=== PATIENT | female | born 1985 | race Two or more races ===

== ENCOUNTER 2019-05-25 10:23 | Emergency (ER) | payer SELFPAY ==
[~2019-05-25] VITALS: Ht 162.6 cm; Wt 86.3 kg
[2019-05-25 11:05] LABS: BASO % 1 % (0-3); EOS # 0.2 x10^3/uL (0.0-0.7); EOS % 4 % (0-3); HEMATOCRIT 39.8 % (36.0-47.0); HEMOGLOBIN 13.3 g/dL (12.0-15.5); LYMPH # 1.9 x10^3/uL (1.0-4.8); LYMPH % 30 % (24-48); MEAN CORPUSCULAR HEMOGLOBIN 29 pg (25-35); MEAN CORPUSCULAR HGB CONC 34 g/dL (31-37); MEAN CORPUSCULAR VOLUME 88 fL (79-100); MONO # 0.5 x10^3/uL (0.0-1.1); MONO % 8 % (0-9); NEUT # 3.6 x10^3/uL (1.8-7.7); NEUT % 58 % (31-73); PLATELET COUNT 266 x10^3/uL (140-400); RED BLOOD COUNT 4.55 x10^6/uL (3.50-5.40); RED CELL DISTRIBUTION WIDTH 13.7 % (11.5-14.5); WHITE BLOOD COUNT 6.2 x10^3/uL (4.0-11.0)
[2019-05-25 11:21] LABS: CALCIUM 8.6 mg/dL (8.5-10.1); CREATININE 0.7 mg/dL (0.6-1.0); POTASSIUM 3.3 mmol/L (3.5-5.1)
--- NOTE | 2019-05-25 11:21 | PHYS DOC ---
Past Medical History Past Medical History: No Pertinent History Past Surgical History: No Surgical History Smoking Status: Never Smoker Alcohol Use: None Adult General Chief Complaint Chief Complaint: ABDOMINAL PAIN [facility] HPI Patient is a 33 year old Persian-speaking female without history of medical problem who presents with complaint of lower abdominal pain. History was taking with translating line. Patient complaining of intermittent episodes of sharp lower abdominal pain without radiation for the last 5 days that usually happen while she was at work and getting better than she is resting at home. Patient rated her pain 5-10 over 10 and complaining of nausea and few episodes of vomiting in the morning for the last couple days. Patient denies urinary symptoms, vaginal bleeding or discharge, diarrhea or constipation, history of the same problem. Patient is G2, P2 with LMP of April 22 and states she had a home negative test about 2 weeks ago. Patient has IUD. Patient states she did not take any pain medication because of the chance of . Patient does not want to have pain medication and mainly wants to know what is wrong with her. Review of Systems Review of Systems Constitutional: Denies fever or chills [] Eyes: Denies change in visual acuity, redness, or eye pain [] HENT: Denies nasal congestion or sore throat [] Respiratory: Denies cough or shortness of breath [] Cardiovascular: No additional information not addressed in HPI [] GI: Reports abdominal pain, nausea, vomiting, denies bloody stools or diarrhea [] : Denies dysuria or hematuria [] Musculoskeletal: Denies back pain or joint pain [] Integument: Denies rash or skin lesions [] Neurologic: Denies headache, focal weakness or sensory changes [] Endocrine: Denies polyuria or polydipsia [] All other systems were reviewed and found to be within normal limits, except as documented in this note. Current Medications Current Medications Current Medications Medications (Trade) Dose Ordered Sig/Ngoc Start Time Stop Time Status Last Admin Dose Admin Potassium Chloride (Klor-Con) 40 meq 1X ONCE 05/25/19 12:15 05/25/19 12:16 DC 05/25/19 12:17 40 MEQ Allergies Allergies Allergies Coded Allergies Type Severity Reaction Last Updated Verified No Known Drug Allergies 05/25/19 No Physical Exam Physical Exam Constitutional: Well developed, well nourished, mild distress, non-toxic appearance. [] HENT: Normocephalic, atraumatic. Eyes: PERRLA, EOMI, conjunctiva normal, no discharge. [] Neck: Normal range of motion, no tenderness, supple, no stridor. [] Cardiovascular:Heart rate regular rhythm, no murmur [] Lungs & Thorax: Bilateral breath sounds clear to auscultation [] Abdomen: Bowel sounds normal, soft, suprapubic guarding no tenderness, no masses, no pulsatile masses. [] Skin: Warm, dry, no erythema, no rash. [] Back: No tenderness, no CVA tenderness. [] Extremities: No tenderness, no cyanosis, no clubbing, ROM intact, no edema. [] Neurologic: Alert and oriented X 3, no focal deficits noted. [] Psychologic: Affect anxious l, judgement normal, mood normal. [] Current Patient Data Vital Signs Vital Signs Date Time Temp Pulse Resp B/P (MAP) Pulse Ox O2 Delivery O2 Flow Rate FiO2 05/25/19 12:16 102 111/63 (79) 100 Room Air 05/25/19 10:33 99.7 17 99.7 Lab Values Laboratory Tests Test 05/25/19 10:37 05/25/19 10:46 05/25/19 10:58 Urine Collection Type Unknown Urine Color Yellow Urine Clarity Clear Urine pH 6.0 (<5.0-8.0) Urine Specific [place] 1.025 (1.000-1.030) Urine Protein Negative mg/dL (NEG-TRACE) Urine Glucose (UA) Negative mg/dL (NEG) Urine Ketones (Stick) Negative mg/dL (NEG) Urine Blood Negative (NEG) Urine Nitrite Negative (NEG) Urine Bilirubin Negative (NEG) Urine Urobilinogen Dipstick 0.2 mg/dL (0.2 mg/dL) Urine Leukocyte Esterase Moderate (NEG) Urine RBC Occ /HPF (0-2) Urine WBC 5-10 /HPF (0-4) Urine Squamous Epithelial Cells Many /LPF Urine Bacteria Many /HPF (0-FEW) Urine Mucus Marked /LPF White Blood Count 6.2 x10^3/uL (4.0-11.0) Red Blood Count 4.55 x10^6/uL (3.50-5.40) Hemoglobin 13.3 g/dL (12.0-15.5) Hematocrit 39.8 % (36.0-47.0) Mean Corpuscular Volume 88 fL (79-100) Mean Corpuscular Hemoglobin 29 pg (25-35) Mean Corpuscular Hemoglobin Concent 34 g/dL (31-37) Red Cell Distribution Width 13.7 % (11.5-14.5) Platelet Count 266 x10^3/uL (140-400) Neutrophils (%) (Auto) 58 % (31-73) Lymphocytes (%) (Auto) 30 % (24-48) Monocytes (%) (Auto) 8 % (0-9) Eosinophils (%) (Auto) 4 % (0-3) H Basophils (%) (Auto) 1 % (0-3) Neutrophils # (Auto) 3.6 x10^3/uL (1.8-7.7) Lymphocytes # (Auto) 1.9 x10^3/uL (1.0-4.8) Monocytes # (Auto) 0.5 x10^3/uL (0.0-1.1) Eosinophils # (Auto) 0.2 x10^3/uL (0.0-0.7) Basophils # (Auto) 0.0 x10^3/uL (0.0-0.2) Sodium Level 142 mmol/L (136-145) Potassium Level 3.3 mmol/L (3.5-5.1) L Chloride Level 106 mmol/L (98-107) Carbon Dioxide Level 29 mmol/L (21-32) Anion Gap 7 (6-14) Blood Urea Nitrogen 13 mg/dL (7-20) Creatinine 0.7 mg/dL (0.6-1.0) Estimated GFR (Cockcroft-Gault) 97.0 BUN/Creatinine Ratio 19 (6-20) Glucose Level 75 mg/dL (70-99) Calcium Level 8.6 mg/dL (8.5-10.1) Total Bilirubin 0.4 mg/dL (0.2-1.0) Aspartate Amino Transferase (AST) 17 U/L (15-37) Alanine Aminotransferase (ALT) 20 U/L (14-59) Alkaline Phosphatase 82 U/L (46-116) Total Protein 7.1 g/dL (6.4-8.2) Albumin 3.7 g/dL (3.4-5.0) Albumin/Globulin Ratio 1.1 (1.0-1.7) POC Urine HCG, Qualitative Hcg negative (Negative) Laboratory Tests 05/25/19 10:46 Laboratory Tests 05/25/19 10:46 EKG EKG [] Radiology/Procedures Radiology/Procedures [] Course & Med Decision Making Course & Med Decision Making Pertinent Labs and Imaging studies reviewed. (See chart for details) discharge: I've spoken with the patient and/or caregivers. I've explained the patient's condition, diagnosis and treatment plan based on information available to me at this time. I've answered the patient's and/or caregivers questions and addressed any concerns. The patient and/or caregivers have a good understanding the patient's diagnosis, condition and treatment plan as can be expected at this point. Vital signs have been stabilized. The patient's condition is stable for discharge from the emergency department. The patient will pursue further outpatient evaluation with her primary care provider or other designated consulting physician as outlined in the discharge instructions. Patient and/or caregivers are agreeable to this plan of care and follow-up instructions have been explained in detail. The patient and/or caregivers have received these instructions in written format and expressed understanding of these discharge instructions. The patient and her caregivers are aware that if any significant change in condition or worsening of symptoms should prompt him to immediately return to this of the closest emergency department. If an emergent department is not readily available I would encourage him to call 911. [place] Disclaimer Dragon Disclaimer This electronic medical record was generated, in whole or in part, using a voice recognition dictation system. Departure Departure Impression: Primary Impression: UTI (urinary tract infection) Additional Impressions: Hypokalemia Abdominal pain Urine test negative Disposition: HOME, SELF-CARE (At 1227) Condition: STABLE Referrals: NO PCP (PCP) Patient Instructions: Abdominal Pain, Hypokalemia, Urinary Tract Infection Additional Instructions: Drink plenty of liquids Follow-up with your primary care physician in 3-5 days Return to ER if not getting better Thank you for visiting [facility]. We appreciate you trusting us with your care. If any additional problems come up don't hesitate to return to visit us. Please follow up with your primary care provider so they can plan additional care if needed and know about the problem that you had. If symptoms worsen come back to the Emergency Department. Any concerning symptoms that start such as chest pain, shortness of air, weakness or numbness on one side of the body, running high fevers or any other concerning symptoms return to the ER. Scripts Ciprofloxacin Hcl (CIPRO) 250 Mg Tablet 1 TAB PO BID for infection, #6 TAB Prov: CANDIS LAGOS MD 05/25/19 Naproxen (NAPROSYN) 500 Mg Tablet 1 TAB PO BID for pain, #14 TAB Prov: CANDIS LAGOS MD 05/25/19 Problem Qualifiers Primary Impression: UTI (urinary tract infection) Urinary tract infection type: acute cystitis Hematuria presence: without hematuria Qualified Codes: N30.00 - Acute cystitis without hematuria Additional Impressions: Abdominal pain Abdominal location: lower abdomen, unspecified Qualified Codes: R10.30 - Lower abdominal pain, unspecified CANDIS LAGOS MD May 25, 2019 11:21
[2019-05-25 11:27] LABS: ALBUMIN 3.7 g/dL (3.4-5.0); ALBUMIN/GLOBULIN RATIO 1.1 (1.0-1.7); TOTAL BILIRUBIN 0.4 mg/dL (0.2-1.0); TOTAL PROTEIN 7.1 g/dL (6.4-8.2)
[2019-05-25 11:47] LABS: BILIRUBIN,URINE NEGATIVE (NEG); CLARITY,URINE CLEAR; COLOR,URINE YELLOW; NITRITE,URINE NEGATIVE (NEG); PROTEIN,URINE NEGATIVE (NEG-TRACE); UROBILINOGEN,URINE 0.2 mg/dL (0.2 mg/dL)
[2019-05-25 12:04] LABS: RBC,URINE OCC /HPF (0-2)
[2019-05-25 12:05] LABS: BACTERIA,URINE MANY /HPF (0-FEW); SQUAMOUS EPITHELIAL CELL,UR MANY /LPF
[2019-05-25 12:16] VITALS: BP 111/63
[2019-05-25] MEDS: POTASSIUM CHLORIDE 20 MEQ TABLET.ER. PO ONE (12:17)
[2019-05-25] MEDS ORDERED: NAPR-683 PO (12:29)
[2019-05-25] MEDS ORDERED: CIPR250T30 PO (12:29)
== END 2019-05-25 12:55 | disposition home or self-care (01) ==
LOC: ER 10:23
DX: N30.00 Acute cystitis without hematuria (principal); R10.30 Lower abdominal pain, unspecified; E87.6 Hypokalemia
CPT/HCPCS: 36415; 80053; 81001; 81025; 85025; 87086; 99283

== ENCOUNTER 2020-04-30 10:08 | Emergency (ER) | payer SELFPAY ==
[~2020-04-30] VITALS: Ht 167.6 cm; Wt 85.0 kg
[~2020-04-30 10:08] MED LIST: CIPR250T30 PO; NAPR-683 PO
--- NOTE | 2020-04-30 11:20 | RAD ---
Chest AP portable 04/30/2020. Reason for exam: Shortness of air. No infiltrate or effusion is seen. Heart size and pulmonary vascularity appear normal. IMPRESSION: No acute abnormality. Electronically signed by: Doroteo Munguia Jr., MD (04/30/2020 11:18 AM) [facility]
[2020-04-30 11:26] LABS: BILIRUBIN,URINE NEGATIVE (NEG); CLARITY,URINE CLEAR; COLOR,URINE YELLOW; NITRITE,URINE NEGATIVE (NEG); PROTEIN,URINE NEGATIVE (NEG-TRACE); UROBILINOGEN,URINE 0.2 mg/dL (0.2 mg/dL)
[2020-04-30 11:42] LABS: BACTERIA,URINE FEW /HPF (0-FEW); RBC,URINE 0 /HPF (0-2)
[2020-04-30 11:43] LABS: AMORPHOUS SEDIMENT,UR PRESENT /HPF
--- NOTE | 2020-04-30 12:25 | RAD ---
Limited obstetrical ultrasound 04/30/2020. Reason for exam: Shortness of breath. The patient is 3 months . Evaluate viability. A living intrauterine fetus is demonstrated, with heart rate of 145 bpm. No anomaly is detected, alth ough evaluation is limited by the early stage of . Amniotic fluid volume appears appropriate . The placenta is seen posteriorly and appears to cross the internal os. The following age estimates were obtained: BPD: 16 weeks 5 days HC: 16 weeks 2 days AC: 16 weeks 3 days FL: 16 weeks 3 days. Composite ultrasound estimated is 16 weeks 3 days, giving RENNY of 10/12/2020. IMPRESSION: There is a normal-appearing living intrauterine fetus. There is currently placenta previa. This will commonly resolve later in , but a follow-up [facility] would be useful to confirm this. Electronically signed by: Doroteo Munguia Jr., MD (04/30/2020 12:23 PM) [facility]
[2020-04-30 12:49] LABS: BASO % 1 % (0-3); EOS # 0.2 x10^3/uL (0.0-0.7); EOS % 2 % (0-3); HEMATOCRIT 36.2 % (36.0-47.0); HEMOGLOBIN 12.4 g/dL (12.0-15.5); LYMPH # 1.4 x10^3/uL (1.0-4.8); LYMPH % 20 % (24-48); MEAN CORPUSCULAR HEMOGLOBIN 31 pg (25-35); MEAN CORPUSCULAR HGB CONC 34 g/dL (31-37); MEAN CORPUSCULAR VOLUME 90 fL (79-100); MONO # 0.5 x10^3/uL (0.0-1.1); MONO % 7 % (0-9); NEUT % 70 % (31-73); PLATELET COUNT 225 x10^3/uL (140-400); RED BLOOD COUNT 4.03 x10^6/uL (3.50-5.40); RED CELL DISTRIBUTION WIDTH 13.7 % (11.5-14.5); WHITE BLOOD COUNT 7.1 x10^3/uL (4.0-11.0)
[2020-04-30 13:00] LABS: CALCIUM 8.3 mg/dL (8.5-10.1); CREATININE 0.5 mg/dL (0.6-1.0); GFR 142.1; POTASSIUM 4.1 mmol/L (3.5-5.1)
[2020-04-30 13:05] LABS: ALBUMIN 2.8 g/dL (3.4-5.0); ALBUMIN/GLOBULIN RATIO 0.9 (1.0-1.7); TOTAL BILIRUBIN 0.2 mg/dL (0.2-1.0); TOTAL PROTEIN 5.9 g/dL (6.4-8.2)
[2020-04-30 13:59] VITALS: BP 102/64
--- NOTE | 2020-04-30 14:10 | PHYS DOC ---
Past Medical History Past Medical History: No Pertinent History Past Surgical History: No Surgical History Smoking Status: Never Smoker Alcohol Use: None General Adult EDM: Chief Complaint: SHORTNESS OF BREATH HPI: HPI: 34 yo presents to the ED with complaints of dry cough and fatigue, stating this does not feel like her asthma. Reports she is 3 months and when asked if she has any abdominal pain, c/o "pressure" in her lower abdomen. History of placenta previa and prior . Pt with friend in ed, speaks indian and gave permission for her to translate. Review of Systems: Review of Systems: Constitutional: Denies fever or chills. [] Eyes: Denies change in visual acuity. [] HENT: Denies nasal congestion or sore throat. [] Respiratory: Denies increased work of breathing or hemoptysis Cardiovascular: Denies chest pain or edema. [] GI: Denies abdominal pain, nausea, vomiting, bloody stools or diarrhea. [] : Denies dysuria or vaginal bleeding Musculoskeletal: Denies back pain or joint pain. [] Integument: Denies rash. [] Neurologic: Denies headache, neck stiffness, focal weakness or sensory changes. [] Endocrine: Denies polyuria or polydipsia. [] Lymphatic: Denies swollen glands. [] Psychiatric: Denies depression or anxiety. [] Heart Score: Risk Factors: Risk Factors: DM, Current or recent (<one month) smoker, HTN, HLP, family history of CAD, obesity. Risk Scores: Score 0 - 3: 2.5% MACE over next 6 weeks - Discharge Home Score 4 - 6: 20.3% MACE over next 6 weeks - Admit for Clinical Observation Score 7 - 10: 72.7% MACE over next 6 weeks - Early Invasive Strategies Allergies: Allergies: Allergies Coded Allergies Type Severity Reaction Last Updated Verified No Known Drug Allergies 05/25/19 No Physical Exam: PE: Constitutional: Well developed, well nourished, no acute distress, non-toxic ap pearance. HENT: Normocephalic, atraumatic, Eyes: EOMI, conjunctiva normal, no discharge. Neck: Normal range of motion, supple, Cardiovascular: S1/2 present, regular rhythm Lungs & Thorax: Speaking in full sentences, bilateral equal chest rise, no tachypnea or increased work of breathing, lungs clear to auscultation bilaterally, no wheezing/rales/crackles, 99-100% on room air, Abdomen: soft, no tenderness, Skin: Warm, dry, no erythema, no rash. [] Back: No tenderness, no CVA tenderness. [] Extremities: No tenderness, no cyanosis, no lower extremity edema Neurologic: Alert and oriented X 3, normal motor function, normal sensory function, no focal deficits noted. [] Psychologic: Affect normal, judgement normal, mood normal. [] Current Patient Data: Labs: Laboratory Tests Test 04/30/20 10:10 04/30/20 11:21 04/30/20 12:20 Urine Collection Type Void Urine Color Yellow Urine Clarity Clear Urine pH 8.0 (<5.0-8.0) Urine Specific [place] 1.010 (1.000-1.030) Urine Protein Negative mg/dL (NEG-TRACE) Urine Glucose (UA) Negative mg/dL (NEG) Urine Ketones (Stick) Negative mg/dL (NEG) Urine Blood Negative (NEG) Urine Nitrite Negative (NEG) Urine Bilirubin Negative (NEG) Urine Urobilinogen Dipstick 0.2 mg/dL (0.2 mg/dL) Urine Leukocyte Esterase Trace (NEG) Urine RBC 0 /HPF (0-2) Urine WBC 1-4 /HPF (0-4) Urine Squamous Epithelial Cells Mod /LPF Urine Renal Epithelial Cells Few /LPF Urine Amorphous Sediment Present /HPF Urine Bacteria Few /HPF (0-FEW) POC Urine HCG, Qualitative Hcg positive (Negative) White Blood Count 7.1 x10^3/uL (4.0-11.0) Red Blood Count 4.03 x10^6/uL (3.50-5.40) Hemoglobin 12.4 g/dL (12.0-15.5) Hematocrit 36.2 % (36.0-47.0) Mean Corpuscular Volume 90 fL (79-100) Mean Corpuscular Hemoglobin 31 pg (25-35) Mean Corpuscular Hemoglobin Concent 34 g/dL (31-37) Red Cell Distribution Width 13.7 % (11.5-14.5) Platelet Count 225 x10^3/uL (140-400) Neutrophils (%) (Auto) 70 % (31-73) Lymphocytes (%) (Auto) 20 % (24-48) L Monocytes (%) (Auto) 7 % (0-9) Eosinophils (%) (Auto) 2 % (0-3) Basophils (%) (Auto) 1 % (0-3) Neutrophils # (Auto) 5.0 x10^3/uL (1.8-7.7) Lymphocytes # (Auto) 1.4 x10^3/uL (1.0-4.8) Monocytes # (Auto) 0.5 x10^3/uL (0.0-1.1) Eosinophils # (Auto) 0.2 x10^3/uL (0.0-0.7) Basophils # (Auto) 0.0 x10^3/uL (0.0-0.2) D-Dimer (Ami) 0.77 ug/mlFEU (0.00-0.50) H Sodium Level 136 mmol/L (136-145) Potassium Level 4.1 mmol/L (3.5-5.1) Chloride Level 104 mmol/L (98-107) Carbon Dioxide Level 24 mmol/L (21-32) Anion Gap 8 (6-14) Blood Urea Nitrogen 7 mg/dL (7-20) Creatinine 0.5 mg/dL (0.6-1.0) L Estimated GFR (Cockcroft-Gault) 142.1 BUN/Creatinine Ratio 14 (6-20) Glucose Level 79 mg/dL (70-99) Calcium Level 8.3 mg/dL (8.5-10.1) L Total Bilirubin 0.2 mg/dL (0.2-1.0) Aspartate Amino Transferase (AST) 16 U/L (15-37) Alanine Aminotransferase (ALT) 22 U/L (14-59) Alkaline Phosphatase 57 U/L (46-116) Troponin I Quantitative < 0.017 ng/mL (0.000-0.055) Total Protein 5.9 g/dL (6.4-8.2) L Albumin 2.8 g/dL (3.4-5.0) L Albumin/Globulin Ratio 0.9 (1.0-1.7) L Laboratory Tests 04/30/20 12:20 Laboratory Tests 04/30/20 12:20 EKG: EKG: Sinus rhythm 87 bpm, no axis deviation, no T wave inversions, no ST elevations or ST depressions, normal intervals Radiology/Procedures: Radiology/Procedures: []IMAGING REPORT Signed PATIENT: SEBASTIÁN BLACKBURNUNT: [id number] : 1985 LOCATION: ER AGE: 34 SEX: F EXAM STATUS: REG ER ORD. PHYSICIAN: BAIRON LICONA DO REASON: 3 mns prego PROCEDURE: OB LIMITED Limited obstetrical ultrasound 04/30/2020. Reason for exam: Shortness of breath. The patient is 3 months . Evaluate viability. A living intrauterine fetus is demonstrated, with heart rate of 145 bpm. No anomaly is detected, although evaluation is limited by the early stage of . Amniotic fluid volume appears appropriate. The placenta is seen posteriorly and appears to cross the internal os. The following age estimates were obtained: BPD: 16 weeks 5 days HC: 16 weeks 2 days AC: 16 weeks 3 days FL: 16 weeks 3 days. Composite ultrasound estimated is 16 weeks 3 days, giving RENNY of 10/12/2020. IMPRESSION: There is a normal-appearing living intrauterine fetus. There is currently placenta previa. This will commonly resolve later in , but a follow-up study would be useful to confirm this. Electronically signed by: Gagan Munguia Jr., MD (04/30/2020 12:23 PM) [facility] DICTATED and SIGNED BY: GAGAN MUNGUIA Jr, MD DATE: 04/30/20 [id number] IMAGING REPORT Signed PATIENT: SEBASTIÁN BLACKBURNUNT: [id number] : 1985 LOCATION: ER AGE: 34 SEX: F EXAM STATUS: REG ER ORD. PHYSICIAN: BAIRON LICONA DO REASON: soa PROCEDURE: PORTABLE CHEST 1V Chest AP portable 04/30/2020. Reason for exam: Shortness of air. No infiltrate or effusion is seen. Heart size and pulmonary vascularity appear normal. IMPRESSION: No acute abnormality. Electronically signed by: Gagan Munguia Jr., MD (04/30/2020 11:18 AM) [facility] DICTATED and SIGNED BY: GAGAN MUNGUIA Jr, MD DATE: 04/30/20 [id number] 0 IMAGING REPORT Signed PATIENT: SEBASTIÁN BLACKBURNUNT: [id number] : 1985 LOCATION: ER AGE: 34 SEX: F EXAM STATUS: REG ER ORD. PHYSICIAN: BAIRON LICONA DO REASON: SOB, R/O PE PROCEDURE: CT ANGIOGRAPHY CHEST CTA chest with and without contrast 04/30/2020. Reason for exam: Shortness of breath. Possible pulmonary embolism. Thin section CT images were made through the chest using an infusion of 100 mL Omnipaque 350. MIP reconstructions were performed. Exposure: One or more of the following individualized dose reduction techniques were utilized for this examination: 1. Automated exposure control 2. Adjustment of the mA and/or kV according to patient size 3. Use of iterative reconstruction technique. FINDINGS: No significant abnormality is seen in the lungs. The central airways appear normal. No enlarged lymph nodes are seen. Evaluation of the pulmonary arterial tree shows relatively poor opacification of the vessels. No large or central embolus is seen. Smaller peripheral emboli may be missed. Images through the upper abdomen show no apparent abnormality. IMPRESSION: No pulmonary embolism is seen, although evaluation is limited by the degree of contrast opacification. Smaller emboli would be difficult to detect. No acute abnormality is seen in the lungs. Electronically signed by: Gagan Munguia Jr., MD (04/30/2020 3:45 PM) [facility] DICTATED and SIGNED BY: GAGAN MUNGUIA Jr, MD DATE: 04/30/20 [id number] 0 Signed PATIENT: SEBASTIÁN BLACKBURNUNT: [id number] : 1985 LOCATION: ER AGE: 34 SEX: F EXAM STATUS: REG ER ORD. PHYSICIAN: BAIRON LICONA DO REASON: soa, r/o dvt PROCEDURE: VENOUS LOWER EXT BILATERAL CTA chest with and without contrast 04/30/2020. Reason for exam: Shortness of breath. Possible pulmonary embolism. Thin section CT images were made through the chest using an infusion of 100 mL Omnipaque 350. MIP reconstructions were performed. Exposure: One or more of the following individualized dose reduction techniques were utilized for this examination: 1. Automated exposure control 2. Adjustment of the mA and/or kV according to patient size 3. Use of iterative reconstruction technique. FINDINGS: No significant abnormality is seen in the lungs. The central airways appear normal. No enlarged lymph nodes are seen. Evaluation of the pulmonary arterial tree shows relatively poor opacification of the vessels. No large or central embolus is seen. Smaller peripheral emboli may be missed. Images through the upper abdomen show no apparent abnormality. IMPRESSION: No pulmonary embolism is seen, although evaluation is limited by the degree of contrast opacification. Smaller emboli would be difficult to detect. No acute abnormality is seen in the lungs. Electronically signed by: Gagan Munguia Jr., MD (04/30/2020 3:45 PM) [facility] DICTATED and SIGNED BY: GAGAN MUNGUIA Jr, MD DATE: 04/30/20 [id number] 0 Course & Med Decision Making: Course & Med Decision Making Pertinent Labs and Imaging studies reviewed. (See chart for details) COVID-19 CRITERIA: The patient was evaluated during the global COVID-19 pandemic, and that diagnosis was suspected/considered upon their initial presentation. Their evaluation, treatment and testing was consistent with current guidelines for patients who present with complaints or symptoms that may be related to COVID-19. Concern for shortness of breath and fatigue, covid test pending. CTA with no thromboembolic disease although cannot exclude small emboli. No LE DVT. Labs wnl. US c/w second trimester with placenta previa. Urinalysis contaminated but given patient's symptoms we will treat with Macrobid. Patient is very well-appearing and in no distress. Symptoms could be related to Covid, viral process or normal symptoms of . Will discharge home with strict ED return precautions. Encouraged urgent outpatient follow-up with PMD and TOOL RENTAL TECHNICIAN. Life-threatening processes were considered but are low suspicion at this time, given history, physical exam and ED workup. Pt was educated on all prescription medications and adverse effects. All patient's questions were answered and pt was stable at time of discharge. Life/limb-threatening differential includes but is not limited to, ACS, dysrhythmia, pneumothorax or hemothorax, pulmonary embolus, pneumonia, broncho constriction, pulmonary edema, angioedema, epiglottitis, tracheitis, Eligio's angina, RPA/TARRING MACHINE OPERATOR, anaphylaxis, angioedema, cardiac tamponade or murmurs, pericarditis, myocarditis, poisoning or toxicity, sepsis or autoimmune/neurologic disease. I spoken with the patient and her caregivers. I explained the patient's condition, diagnoses and treatment plan based on the information available to me at this time. I have answered the patient and her caregiver's questions and addressed any concerns. The patient and her caregivers have a good understanding of patient's diagnosis, condition and treatment plan as can be expected at this point. Vital signs have been stable. Patient's condition is stable and appropriate for discharge from the emergency department. Patient will pursue further outpatient evaluation with primary care physician or other designated or consulting physician as outlined in the discharge instructions. The patient and/or caregivers are agreeable to this plan of care and follow-up instructions have been explained in detail. The patient and/or caregivers have received these instructions in written form and have expressed an understanding of the discharge instructions. The patient and/or caregivers are aware that any significant change of condition or worsening of symptoms should prompt immediate return to this or the closest emergency department or call to 911. [place] Disclaimer: TelePharm Disclaimer: This electronic medical record was generated, in whole or in part, using a voice recognition dictation system. Departure Departure Impression: Primary Impression: Person under investigation for COVID-19 Additional Impressions: Placenta previa UTI (urinary tract infection) Dyspnea Disposition: 01 DC HOME SELF CARE/HOMELESS Condition: STABLE Referrals: NO PCP (PCP) SEGUIMIENTO CON MEDICINA FAMILIAR: Medicina Familiar Direccin: [address] [place] [address] Telfono: Patient Instructions: - Placenta Previa, Shortness of Breath, Urinary Tract Infection Additional Instructions: Chucky un seguimiento con un obstetra / gineclogo en la siguiente oficina para recibir atencin obsttrica SEGUIMIENTO CON OB / REEFER ENGINEER: [facility] Obstetricia y Ginecologa Direccin: [address] [place] [address] Telfono: Regrese al servicio de urgencias de inmediato si presenta sangrado vaginal / dolor abdominal o de espalda scarlett o fiebre, knight nivel de oxgeno por debajo del 90% (compre israel oximetra de pulso en israel rishabh de suministros mdicos), dificultad para respirar, incluida la respiracin rpida o aumento del trabajo respiratorio (piel succin debajo de las costillas), dolor de pecho o sntomas similares a un accidente cerebrovascular (cada de la kasia, cambios en el habla, debilidad de brazos / piernas). Le de los santos hecho israel prueba de COVID-19. Es israel infeccin causada por un nuevo tipo. de coronavirus. En la mayora de los casos, COVID-19 causar sntomas leves o similares a los de un resfriado. Puede causar sntomas ms graves kirit problemas para respirar en algunos. No existe tratamiento para COVID-19. El cuerpo eliminar la infeccin con el tiempo. Autocuidado ayudar a aliviar las molestias. Pasos a seguir: Autocuidado Descanse segn sea necesario. Los hbitos saludables pueden ayudarlo a sentirse mejor. Los pasos incluyen: Elija alimentos saludables que incluyan frutas y verduras. Sophia agua aniket todo el da. Duerma lo suficiente cada noche. Si fuma, intente dejar de hacerlo. Puede facilitar la respiracin. Evite el alcohol. Mantenga a los dems sanos El virus se puede contagiar a otras personas. Se liberan gotitas cada vez que estornuda o tose. los las gotitas pueden entrar en la boca, la nariz o los ojos de las personas cercanas a usted y provocar israel infeccin. A reducir las posibilidades de transmitir COVID-19 a otras personas: Qudese en casa hasta que knight mdico le diga que es seguro irse. Si mimi positivo esto significar permanecer aislado hasta que se cumplan las dos condiciones siguientes: De [place] pasado al menos 7 burris desde el inicio de la enfermedad. No zabala tenido fiebre aniket al menos 72 horas sin el uso de medicamentos. Aniket veronica tiempo: - Evite las reas pblicas, los eventos o el transporte. No regrese al trabajo ni a la escuela hasta que El mdico zabala dicho que es seguro hacerlo. - Llame con anticipacin si necesita ir a un centro mdico. Hgales saber que puede tener COVID-19. Eso les ayudar a guiarle a dnde ir. Tambin pueden pedirle que use israel mascarilla cuando venga a la oficina. - Si llama a los servicios mdicos de emergencia, infrmeles que es posible que tenga COVID-19. Mientras est en casa: - Trate de evitar el contacto cercano con otras personas. Mantngase a unos 6 pies de distancia. - Si es posible, pase la mayor parte de knight tiempo en israel habitacin separada de las dems. - Use israel mascarilla si va a estar en contacto cercano con otras personas, kirit compartir israel habitacin o vehculo. - Pdale a alguien que limpie las superficies comunes de la casa. Utilice limpiadores domsticos todos los burris reas kirit picaportes, mostradores o lavabos. - Toser o estornudar en un pauelo. Deseche el pauelo inmediatamente despus de knight uso. Si un pauelo no est disponible, tosa o estornude en knight codo. - Lvese las carmen con frecuencia. Lvelos despus de estornudar o toser. Use agua y jabn y lvese aniket al menos 20 segundos. Se puede usar un limpiador de carmen a base de alcohol si no se usa agua y jabn. disponible. - No prepare comida para otros. Evite compartir artculos personales kirit tenedores, cucharas o cepillos de dientes. - Evite el contacto cercano con mascotas mientras est enfermo. No hay evidencia del virus. pasando a las mascotas. Veronica es un paso de seguridad hasta que se sepa ms sobre veronica virus. El aislamiento puede resultar frustrante. La interaccin social puede ayudar. Mantente en contacto con amigos y elly a travs de opciones de telfono y tecnologa. Todava puede interactuar con otras personas en knight hogar, solo mantenga israel distancia austin de aproximadamente 6 pies. Hacer un seguimiento: El consultorio de knight mdico se comunicar con usted para gaurav si hay algn cambio en knight claudia. Es posible que le pidan que lleve un registro de los sntomas para compartir con ellos. Tambin te lo harn saber cuando tengas alexis que volvers a estar en pblico. Problemas a tener en cuenta: Comunquese con knight mdico si knight recuperacin no va kirit esperaba. Obtenga atencin de emergencia si tiene problemas kirit: - Dificultad para respirar - Dolor o presin en el pecho sin parar - Cambios en la conciencia, confusin o problemas para despertarse. - Los labios o la kasia tienen un color azulado. - Empeoramiento de los sntomas Si anuel que tiene israel emergencia, llame a los servicios mdicos de emergencia de inmediato. Tomado de [facility] Nitrofurantoin Monohyd/M-Cryst (MACROBID 100 MG CAPSULE) 100 Mg Capsule 1 CAP PO BID for 7 Days, #14 CAP 0 Refills Prov: BAIRON LICONA DO 04/30/20 BAIRON LICONA DO Apr 30, 2020 14:10
[2020-04-30] MEDS ORDERED: IOHEXOL 350 MG/ML 100 ML VIAL. IV ONE (14:45)
[2020-04-30] MEDS ORDERED: CONTRAST GIVEN. MC PRN (15:00)
--- NOTE | 2020-04-30 15:47 | RAD ---
CTA chest with and without contrast 04/30/2020. Reason for exam: Shortness of breath. Possible pulmonary embolism. Thin section CT images were made through the chest using an infusion of 100 mL Omnipaque 350. MIP rec onstructions were performed. Exposure: One or more of the following individualized dose reduction wojciech hniques were utilized for this examination: 1. Automated exposure control 2. Adjustment of the mA a nd/or kV according to patient size 3. Use of iterative reconstruction technique. FINDINGS: No significant abnormality is seen in the lungs. The central airways appear normal. No enla rged lymph nodes are seen. Evaluation of the pulmonary arterial tree shows relatively poor opacification of the vessels. No larg e or central embolus is seen. Smaller peripheral emboli may be missed. Images through the upper abdomen show no apparent abnormality. IMPRESSION: No pulmonary embolism is seen, although evaluation is limited by the degree of contrast o pacification. Smaller emboli would be difficult to detect. No acute abnormality is seen in the lungs. Electronically signed by: Doroteo Munguia Jr., MD (04/30/2020 3:45 PM) [facility]
[2020-04-30] MEDS ORDERED: NITR100C62 PO (17:15)
--- NOTE | 2020-04-30 17:52 | EKG ---
[facility] [address] [place] [address] Test Date: 2020-04-30 Test Time: 16:37:09 Pat Name: YEISON BLACKBURN Department: Room: Gender: F Pecan Mallow Dipper: : 1985 Requested By: BAIRON LICONA Order Number: [id number] Reading MD: Measurements Intervals [place] Rate: 87 P: 6 ID: [id number] QRS: 25 QRSD: 88 T: 27 QT: 334 QTc: 407 Interpretive Statements SINUS RHYTHM NORMAL ECG RI6.01 No previous ECG available for comparison
--- NOTE | 2020-05-02 15:04 | NUR ---
IP: Attempted to contact pt concerning COVID results. No answer Voicemail box is full.
== END 2020-04-30 17:45 | disposition home or self-care (01) ==
LOC: ER 10:08
DX: O23.42 Unspecified infection of urinary tract in pregnancy, second trimester (principal); O44.02 Complete placenta previa NOS or without hemorrhage, second trimester; Z20.822 Contact with and (suspected) exposure to COVID-19; R06.00 Dyspnea, unspecified; R05 Cough; Z3A.16 16 weeks gestation of pregnancy
CPT/HCPCS: 36415; 71045; 71275; 76815; 80053; 81001; 81025; 84484; 85025; 85379; 87086; 93005; 93970; 99285; Q9967; U0003; C9803

== ENCOUNTER 2020-06-19 04:11 | Observation (INO) | payer SELFPAY ==
[~2020-06-19 04:11] MED LIST changes: +NITR100C62 PO
[2020-06-19] MEDS ORDERED: IV RINGERS,LACTATED 1000ML 1,000 ML IV PRN (04:30)
[2020-06-19 04:38] LABS: BILIRUBIN,URINE NEGATIVE (NEG); CLARITY,URINE CLEAR; COLOR,URINE YELLOW; NITRITE,URINE NEGATIVE (NEG); PROTEIN,URINE NEGATIVE (NEG-TRACE); UROBILINOGEN,URINE 0.2 mg/dL (0.2 mg/dL)
[2020-06-19 04:44] LABS: BACTERIA,URINE FEW /HPF (0-FEW); BARBITURATES NEG (NEG); BENZODIAZEPINES NEG (NEG); CANNABINOIDS NEG (NEG); COCAINE NEG (NEG); METHADONE NEG (NEG); OPIATES NEG (NEG); PHENCYCLIDINE NEG (NEG); RBC,URINE RARE /HPF (0-2)
[2020-06-19 04:46] LABS: AMPHETAMINE/METHAMPHETAMINE NEG (NEG)
== END 2020-06-19 05:24 | disposition home or self-care (01) ==
LOC: 3 SO LND 04:11
PROVIDERS: ADMIT Obstetrics & Gynecology; ATTEND Obstetrics & Gynecology
DX: O26.892 Other specified pregnancy related conditions, second trimester (principal); R07.89 Other chest pain; Z3A.22 22 weeks gestation of pregnancy; Z79.899 Other long term (current) drug therapy
CPT/HCPCS: 59025; 80307; 81001; 87086; G0378; G0379

== ENCOUNTER 2020-11-01 09:17 | Emergency (ER) | payer SELFPAY ==
[~2020-11-01] VITALS: Ht 165.1 cm; Wt 84.4 kg
[2020-11-01 09:30] VITALS: BP 118/78
--- NOTE | 2020-11-01 09:56 | PHYS DOC ---
Past Medical History Past Medical History: Asthma Past Surgical History: Smoking Status: Never Smoker Alcohol Use: None General Adult EDM: Chief Complaint: COUGH HPI: HPI: 35-year-old female with a history of asthma presents the emergency department complaining of cough with phlegm production for the last several days. She has a at home who is also sick with similar symptoms. She denies any shortness of breath. She has an inhaler at home that she has not used for her symptoms. The patient denies nausea, vomiting, fever, chills, chest pain, shortness of breath, abdominal pain, urinary symptoms, recent trauma, or any other complaints. Review of Systems: Review of Systems: Review of systems is otherwise negative except for what was mentioned in the HPI Heart Score: C/O Chest Pain: No Allergies: Allergies: Allergies Coded Allergies Type Severity Reaction Last Updated Verified No Known Drug Allergies 05/25/19 No Physical Exam: PE: Constitutional: No acute distress, non-toxic appearance. HENT: Atraumatic, bilateral external ears normal, nose normal. Eyes: PERRLA, EOMI, conjunctiva normal, no discharge. Neck: Normal range of motion, supple, no stridor. Cardiovascular: Heart rate regular rhythm. 2+ radial pulses Lungs & Thorax: No respiratory distress, symmetrical expansion. Bilateral breath sounds clear to auscultation Abdomen: Soft, no tenderness Skin: Warm, dry. Extremities: No tenderness, no cyanosis, ROM intact, no edema. Neurologic: Alert and oriented X 3, normal motor function, normal sensory function, no focal deficits noted. Non ataxic gait. GCS 15. Psychologic: Affect normal, judgment normal, mood normal. Current Patient Data: Labs: Laboratory Tests Test 11/01/20 10:05 SARS-CoV-2 Antigen (Rapid) Negative (NEGATIVE) Vital Signs: Vital Signs Date Time Temp Pulse Resp B/P (MAP) Pulse Ox O2 Delivery O2 Flow Rate FiO2 11/01/20 09:30 98.4 95 18 118/78 (77) 97 Room Air 98.4 Radiology/Procedures: Radiology/Procedures: AP chest. HISTORY: Cough AP view was taken of the chest. Lungs are free of infiltrates. Heart is normal in size. There is no effusion. There is a granuloma on the left. IMPRESSION: 1. No acute infiltrates. Electronically signed by: Seferino Grossman MD (11/01/2020 10:25 AM) Course & Med Decision Making: Course & Med Decision Making History was obtained via an reinsurance claims analyst. X-ray clear, no signs of asthma exacerbation today. Patient likely has a simple bronchitis URI, rapid Covid was negative, PCR test is pending. Departure Departure Impression: Primary Impression: Cough Disposition: HOME / SELF CARE / HOMELESS Condition: GOOD Referrals: NO PCP (PCP) Patient Instructions: Upper Respiratory Infection, Adult, Mewy-xw-Seaf Additional Instructions: You were seen in the emergency department for a upper respiratory tract infection. You should return to the ED if you develop worsening cough, shortness of breath, chest pain, or any other new or concerning symptoms. You can use an OTC sinus rinse to help with sinus congestion. Your cough may persist for a few weeks but your other symptoms should gradually improve. You should make sure to drink plenty of fluids at home. Your Covid test today was negative ZAIDA JIMENEZ DO Nov 01, 2020 09:56
--- NOTE | 2020-11-01 10:27 | RAD ---
AP chest. HISTORY: Cough AP view was taken of the chest. Lungs are free of infiltrates. Heart is normal in size. There is no e ffusion. There is a granuloma on the left. IMPRESSION: 1. No acute infiltrates. Electronically signed by: Seferino Grossman MD (11/01/2020 10:25 AM) [facility]
--- NOTE | 2020-11-02 11:48 | NUR ---
IP: Informed pt of negative covid test. pt verbalized understanding.
== END 2020-11-01 12:34 | disposition home or self-care (01) ==
LOC: ER 09:17
DX: R05 Cough (principal); Z20.822 Contact with and (suspected) exposure to COVID-19; J45.909 Unspecified asthma, uncomplicated
CPT/HCPCS: 71045; 87426; 96361; 96374; 99285; U0003; U0005

== ENCOUNTER 2020-11-11 10:10 | Emergency (ER) | payer SELFPAY ==
[~2020-11-11] VITALS: Ht 167.6 cm; Wt 85.0 kg
[2020-11-11 10:21] VITALS: BP 118/80
[2020-11-11] MEDS ORDERED: ACETAMINOPHEN 325 MG TABLET. PO ONE (11:00)
[2020-11-11] MEDS ORDERED: LIDOCAINE 1% Multi-Dose 20 ML VIAL. ID ONE (11:00)
[2020-11-11] MEDS ORDERED: AMOX1TAB61 PO (11:06)
--- NOTE | 2020-11-11 11:09 | PHYS DOC ---
Past Medical History Past Medical History: Asthma Additional Past Medical Histor: Seasonal allergies (GORDON BERRY) Past Surgical History: No Surgical History, (GORDON BERRY) Smoking Status: Never Smoker Alcohol Use: None (GORDON BERRY) General Adult EDM: Chief Complaint: ANIMAL BITE Problems: (1) Dog bite of ear (GORDON BERRY) HPI: HPI: Patient is a 35 year old female who presents with a dog bite to her right ear. Patient states that she was in bed with her 13-year-old daughter [facility], when the dog suddenly woke up and bit her ear. Patient rates her pain as 5 out of 10. She denies headache and any other trauma. Patient also has a 1-month-old baby and is currently breast-feeding. She states the dogs immunizations are up-to-date. Her tetanus has been updated within the last 5 years as she was recently . Patient has no other complaints at this time. (GORDON BERRY) Review of Systems: Review of Systems: Constitutional: Denies fever or chills. Eyes: Denies change in visual acuity. HENT: See HPI Respiratory: Denies cough or shortness of breath. Cardiovascular: Denies chest pain or edema. Musculoskeletal: Denies back pain or joint pain. Integument: See HPI Neurologic: Denies headache, focal weakness or sensory changes. (GORDON BERRY) Heart Score: C/O Chest Pain: No (GORDON BERRY) Allergies: Allergies: Allergies Coded Allergies Type Severity Reaction Last Updated Verified No Known Drug Allergies 05/25/19 No (GORDON BERRY) Physical Exam: PE: Constitutional: Well developed, well nourished, no acute distress, non-toxic appearance. HENT: Right external ear has 3 puncture wounds to the anterior auricle, 2 cm laceration to the postauricular fold. Left external ear atraumatic. Normocephalic, oropharynx moist, no oral exudates, nose normal. Eyes: PERRLA, EOMI, conjunctiva normal, no discharge. Cardiovascular:Heart rate regular rhythm, no murmur. Lungs & Thorax: Bilateral breath sounds clear to auscultation. Skin: Laceration as noted above. Otherwise warm, dry, no erythema, no rash. Neurologic: Alert and oriented X 3, normal motor function, normal sensory function, no focal deficits noted. (GORDON BERRY) Course & Med Decision Making: Course & Med Decision Making Pertinent Labs and Imaging studies reviewed. (See chart for details) (GORDON BERRY) Course & Med Decision Making Attending addendum: I evaluated this patient along with the PA prior to laceration closure. I was not able to evaluate the wound after repair. Tdap was up-to-date. We offered to complete police of the dog bite, but the patient declined to have this done as it is her own dog. Was treated with Augmentin for prophylaxis. Otherwise documentation as above. (NASIMA SHETH MD) Dragon Disclaimer: Dragon Disclaimer: This electronic medical record was generated, in whole or in part, using a voice recognition dictation system. (GORDON BERRY) Departure Departure Impression: Primary Impression: Dog bite of ear Qualified Codes: S01.351A - Open bite of right ear, initial encounter; W54.0XXA - Bitten by dog, initial encounter Disposition: HOME / SELF CARE / HOMELESS Condition: STABLE Referrals: NO PCP (PCP) Patient Instructions: Laceration Care, Adult, [id number] Additional Instructions: It is your choice to report the animal bite to the County or not. However, please keep your dog at home quarantined for the next few days and notify the County if there are any further signs of aggression. You may also take her dog to the vet if you are concerned for illness. Es knight decision hacer un reporte a Animal Control con [facility]. Por favor mantenga knight ori en casa y observe por unos leija. Hace noticia al County si hay signios de agresion. Puede traer el ori al veterinario si hay preocupacion para infermedades. To clean the wound, let water in the shower run over your ear for no longer than 2 minutes at a time. Avoid prolonged water exposure and scrubbing to the wound. The Dermabond will come off on its own. The sutures may be removed in 7 to 10 days. Para limpiar la herida, alena correr el agua para no mas de 2 minutos. No remoje ni restrege la herida. Dermabond va a desaparecer por si solo. Las puntas se pueden quitar en 7-10 leija. Scripts Amoxicillin/Potassium Clav (AUGMENTIN 875-125 TABLET) 1 Each Tablet 1 TAB PO BID for 10 Days, #20 TAB 0 Refills Take 1 tablet by mouth twice a day for 10 days. Prov: GORDON BERRY 11/11/20 Laceration Repair Lac Repair Indication: Laceration to right ear Procedure: The patient was placed in the appropriate position and anesthesia around the laceration was 3mL 1% lidocaine. The area was then cleansed with Betadine. The laceration was closed with four simple interrupted sutures using 5-0 nylon. Puncture wounds to the anterior aspect of the auricle were closed with Dermabond. Total repaired wound length: 5 cm + 3 puncture wounds. Other Items: The patient tolerated the procedure well. Complications: No complications. (GORDON BERRY) GORDON BERRY Nov 11, 2020 11:09 NASIMA SHETH MD Nov 11, 2020 18:50
== END 2020-11-11 11:55 | disposition home or self-care (01) ==
LOC: ER 10:10
DX: S01.311A Laceration without foreign body of right ear, initial encounter (principal); J45.909 Unspecified asthma, uncomplicated; W54.0XXA Bitten by dog, initial encounter; Y93.89 Activity, other specified; Y92.89 Other specified places as the place of occurrence of the external cause; Y99.8 Other external cause status
CPT/HCPCS: 12013; 99283; J3490